=== PATIENT | female | born 1945 | race Caucasian/White ===

== ENCOUNTER → 2017-01-28 | Outpatient (CLI) | payer OTHER, MEDICARE ==
[~2017-01-28] MED LIST: LISI-170 PO
== END | disposition home or self-care (01) ==
LOC: CFH 12:55
PROVIDERS: ATTEND Internal Medicine Hematology & Oncology
DX: Z12.31 Encounter for screening mammogram for malignant neoplasm of breast (principal)
CPT/HCPCS: 77063; G0202

== ENCOUNTER → 2017-01-29 | Outpatient (CLI) | payer OTHER, MEDICARE | END | disposition home or self-care (01) | LOC: CFH 08:54 | PROVIDERS: ATTEND Internal Medicine Hematology & Oncology | DX: N63 Unspecified lump in breast (principal); C50.212 Malignant neoplasm of upper-inner quadrant of left female breast; M85.9 Disorder of bone density and structure, unspecified; Z90.12 Acquired absence of left breast and nipple; Z92.3 Personal history of irradiation; Z98.82 Breast implant status | CPT/HCPCS: 76641; G0206 ==

== ENCOUNTER → 2017-01-31 | Outpatient (CLI) | payer OTHER, MEDICARE | END | disposition home or self-care (01) | LOC: ROC 12:01 | PROVIDERS: ATTEND Radiology Radiation Oncology | DX: C50.912 Malignant neoplasm of unspecified site of left female breast (principal) | CPT/HCPCS: 99212; G0463 ==

== ENCOUNTER → 2017-02-15 | Outpatient (CLI) | payer OTHER, MEDICARE ==
[~2017-02-15] MED LIST changes: +GADOBUTROL 10 MMOL/10 ML VIAL ONE
== END | disposition home or self-care (01) ==
LOC: CFH 07:08
PROVIDERS: ATTEND Internal Medicine Hematology & Oncology
DX: Z13.820 Encounter for screening for osteoporosis (principal); M85.88 Other specified disorders of bone density and structure, other site; C50.112 Malignant neoplasm of central portion of left female breast; N95.1 Menopausal and female climacteric states; Z98.890 Other specified postprocedural states; Z92.3 Personal history of irradiation
CPT/HCPCS: 77080; 82565; A9585; C8908

== ENCOUNTER → 2017-10-02 | Outpatient (CLI) | payer OTHER, MEDICARE ==
[~2017-10-02] MED LIST changes: -GADOBUTROL 10 MMOL/10 ML VIAL ONE
== END | disposition home or self-care (01) ==
LOC: CFH 11:39
PROVIDERS: ATTEND Surgery
DX: R92.2 Inconclusive mammogram (principal); Z92.3 Personal history of irradiation; Z85.3 Personal history of malignant neoplasm of breast
CPT/HCPCS: 77066

== ENCOUNTER 2018-11-11 07:13 | Outpatient (CLI) | payer OTHER, MEDICARE | END 2018-11-11 23:59 | disposition home or self-care (01) | LOC: CFH 07:13 | PROVIDERS: ATTEND Internal Medicine Hematology & Oncology | DX: Z12.31 Encounter for screening mammogram for malignant neoplasm of breast (principal); Z98.82 Breast implant status | CPT/HCPCS: 77067 ==

== ENCOUNTER → 2018-12-25 | Outpatient (CLI) | payer OTHER, MEDICARE | END | disposition home or self-care (01) | LOC: CFH 11:32 | PROVIDERS: ATTEND Internal Medicine Hematology & Oncology | DX: R92.2 Inconclusive mammogram (principal); Z98.82 Breast implant status; Z85.3 Personal history of malignant neoplasm of breast | CPT/HCPCS: 76641 ==

== ENCOUNTER → 2020-01-01 | Outpatient (CLI) | payer OTHER, MEDICARE | END | disposition home or self-care (01) | LOC: CFH 11:24 | PROVIDERS: ATTEND Internal Medicine Hematology & Oncology | DX: Z12.31 Encounter for screening mammogram for malignant neoplasm of breast (principal); C50.212 Malignant neoplasm of upper-inner quadrant of left female breast | CPT/HCPCS: 76641; 77063; 77067 ==

== ENCOUNTER → 2021-01-17 | Outpatient (CLI) | payer OTHER, MEDICARE | END | disposition home or self-care (01) | LOC: CFH 12:02 | PROVIDERS: ATTEND Internal Medicine Hematology & Oncology | DX: Z12.31 Encounter for screening mammogram for malignant neoplasm of breast (principal); Z12.39 Encounter for other screening for malignant neoplasm of breast; C50.212 Malignant neoplasm of upper-inner quadrant of left female breast | CPT/HCPCS: 76641; 77063; 77067 ==

== ENCOUNTER 2021-04-10 11:25 | Outpatient (CLI) | payer OTHER, MEDICARE | END 2021-04-10 23:59 | disposition home or self-care (01) | LOC: CFH 11:25 | PROVIDERS: ATTEND Internal Medicine Hematology & Oncology | DX: C50.212 Malignant neoplasm of upper-inner quadrant of left female breast (principal); M85.89 Other specified disorders of bone density and structure, multiple sites | CPT/HCPCS: 77080 ==